=== PATIENT | female | born 1970 | race Hispanic/Latino ===

== ENCOUNTER 2021-01-15 13:29 | Outpatient (CLI) | payer OTHER ==
[2021-01-15 14:05] LABS: Basophils % (Auto) 0.6 % (0.0-1.8); Eosinophils # (Auto) 0.1 K/mm3 (0.0-0.4); Eosinophils % (Auto) 2.2 % (0.0-4.3); Hematocrit 30.6 % (30.3-42.9); Hemoglobin 9.4 gm/dl (10.1-14.3); Lymphocytes % (Auto) 22.7 % (13.4-35.0); Mean Corpuscular HGB Conc 31 % (30-34); Monocytes # (Auto) 0.3 K/mm3 (0.0-0.8); Platelet Count 211 K/mm3 (140-440); Red Cell Distribution Width 17.9 % (13.2-15.2)
[2021-01-15 15:40] LABS: Mean Corpuscular Volume 68 fl (79-97)
--- NOTE | 2021-01-15 15:44 | XRay Report ---
Lumbar spine 4 views INDICATION: Back pain FINDINGS: Alignment appears normal. Sacrum and sacroiliac joints appear normal. No acute fracture or dislocation. Facet and endplate changes at L4-L5 and L5-S1. Signer Name: Adonis ePrdue MD Signed: 01/15/2021 3:40 PM Workstation Name: [id number]
== END 2021-01-15 13:30 | disposition home or self-care (01) ==
LOC: XRAY 13:29
PROVIDERS: ATTEND Internal Medicine
DX: M54.9 Dorsalgia, unspecified (principal); D64.9 Anemia, unspecified
CPT/HCPCS: 36415; 72100; 85025